=== PATIENT | male | born 1965 | race Caucasian/White ===

== ENCOUNTER 2024-11-09 06:12 | Day surgery (SDC) | payer BC, SELFPAY ==
[2024-11-09 07:04] LABS: Glucose - Point of Care 161 mg/dl (70-99)
== END 2024-11-09 08:55 | disposition home or self-care (01) ==
LOC: GI 06:12
PROVIDERS: ATTENDING PHYSICIAN Specialist
DX: Z12.11 Encounter for screening for malignant neoplasm of colon (principal); Z83.719 Family history of colon polyps, unspecified; Z80.0 Family history of malignant neoplasm of digestive organs; K62.89 Other specified diseases of anus and rectum
CPT/HCPCS: G0105; 82962